=== PATIENT | female | born 1985 | race African-American/Black ===

== ENCOUNTER 2020-08-21 14:13 | Outpatient (CLI) | payer MEDICAID, OTHER ==
[2020-08-21 15:10] VITALS: BP 102/64
[2020-08-21 15:53] LABS: Bilirubin,Urine NEG (Negative); Blood,Urine MOD (Negative); Color,Urine Yellow (Yellow); Mucus,Urine FEW /HPF; Urobilinogen,Urine < 2.0 mg/dL (<2.0)
--- NOTE | 2020-08-21 18:02 | Ultrasound Report ---
Ultrasound OB biophysical profile INDICATION: well-being FINDINGS: breathing movement score 2. movements score 2. posturing time score 2. Am niotic fluid volume score 2. Total biophysical profile 8 out of 8. heart rate is 140. IMPRESSION: Normal biophysical profile. Signer Name: Britton Lyle MD Signed: 08/21/2020 5:57 PM Workstation Name: [id number]
== END 2020-08-21 18:45 | disposition home or self-care (01) ==
LOC: TRG 14:13 → APU 14:16 → TRG 18:45
DX: O46.8X3 Other antepartum hemorrhage, third trimester (principal); Z3A.39 39 weeks gestation of pregnancy
CPT/HCPCS: 59025; 76819; 81001; 87086

== ENCOUNTER 2020-08-22 22:12 | Inpatient (IN) | payer MEDICAID ==
[2020-08-22] MEDS ORDERED: LIDOCAINE (2%) 20 MG/1 ML VIAL 20 ML MDV INFILTRATI ONE (23:29)
[2020-08-22] MEDS ORDERED: BUTORPHANOL 2 MG/1 ML INJ IV PRN ×2 (23:29)
[2020-08-22] MEDS ORDERED: ePHEDrine SULFATE 50 MG/1 ML INJ IV PRN (23:29)
[2020-08-22] MEDS ORDERED: AMPICILLIN/NS 2 GM/100 ML 2 GM/100 ML BAG IV ONE (23:29)
[2020-08-22] MEDS ORDERED: fentaNYL 100 MCG/2 ML INJ IV PRN (23:29)
[2020-08-22] MEDS ORDERED: CARBOPROST TROMETHAMINE 250 MCG/1 ML INJ IM PRN (23:29)
[2020-08-22] MEDS ORDERED: ONDANSETRON 4 MG/2 ML INJ IV PRN (23:29)
[2020-08-22] MEDS ORDERED: METHYLERGONOVINE MALEATE 0.2 MG/ML VIAL IM PRN (23:29)
[2020-08-22] MEDS ORDERED: LOPERAMIDE 2 MG CAP PO PRN (23:29)
[2020-08-22] MEDS ORDERED: OXYTOCIN 10 UNIT/1 ML INJ IM PRN (23:29)
[2020-08-22] MEDS ORDERED: NALOXONE 0.4 MG/1 ML INJ IV PRN (23:29)
[2020-08-22] MEDS ORDERED: TERBUTALINE 1 MG/1 ML INJ SUB-Q PRN (23:29)
[2020-08-22] MEDS ORDERED: miSOPROStol 200 MCG TAB PR PRN (23:29)
[2020-08-22] MEDS ORDERED: MINERAL OIL 30 ML ORAL LIQD PO PRN (23:29)
[2020-08-22] MEDS ORDERED: LACTATED RINGERS 1,000 ML IV SCH (23:30)
[2020-08-22] MEDS ORDERED: OXYTOCIN DRIP 30 UNITS/500 ML BAG IV SCH (23:45)
[2020-08-23 00:10] LABS: Hematocrit 39.7 % (30.3-42.9); Mean Corpuscular HGB Conc 35 % (30-34); Mean Corpuscular Volume 93 fl (79-97); Platelet Count 211 K/mm3 (140-440); Red Blood Count 4.27 M/mm3 (3.65-5.03); Red Cell Distribution Width 13.9 % (13.2-15.2)
[2020-08-23] MEDS ORDERED: AMPICILLIN/NS 1 GM/50 ML 1 GM/50 ML BAG IV SCH (04:00)
[2020-08-23] MEDS ORDERED: LIDOCAINE (2%) 20 MG/1 ML VIAL 20 ML MDV INFILTRATI ONE (05:13)
[2020-08-23] MEDS ORDERED: diphenhydrAMINE 25 MG CAP PO PRN (06:32)
[2020-08-23] MEDS ORDERED: ONDANSETRON 4 MG/2 ML INJ IV PRN (06:32)
[2020-08-23] MEDS ORDERED: MAGNESIUM HYDROXIDE (MOM) ORAL LIQD UDC PO PRN (06:32)
[2020-08-23] MEDS ORDERED: PROMETHAZINE 25 MG RECT SUPP PR PRN (06:32)
[2020-08-23] MEDS ORDERED: LANOLIN/ZINC/DIMETHICONE (LANSINOH) 7 GM TP PRN (06:32)
[2020-08-23] MEDS ORDERED: PROMETHAZINE 25 MG TAB PO PRN (06:32)
[2020-08-23] MEDS ORDERED: WITCH HAZEL/ GLYCERIN PAD TP PRN (06:32)
--- NOTE | 2020-08-23 06:52 | History and Physical Report ---
History of Present Illness Date of examination: 08/23/20 Date of admission: 08/22/20 23:30 Chief complaint: c/o uc since last night History of present illness: 34 y/o presents at [facility] @ 39.4 wks with c/o uc since last night. She denies VB or LOF, and admits to adq FM. Pt states she initiated her pnc at [facility] early in her preg. She reports an uneventful preg w/o complications. Hx of c/s in 2014 with first preg r/t breech presentation. Pt had a with second preg. Social hx unremakable. Family hx of diabetes. Pt was found to be in labor and was admitted to L&D for delivery. Past History Past Medical History: no pertinent history Past Surgical History: section Family/Genetic History: diabetes Social history: no significant social history - Obstetrical History Expected Date of Delivery: 08/25/20 Actual Gestation: 39 Week(s) 5 Day(s) : 3 Para: 2 Hx # Term Pregnancies: 2 Number of Living Children: 2 Medications and Allergies Allergies Allergy/AdvReac Type Severity Reaction Status Date / Time No Known Allergies Allergy Verified 01/08/15 13:33 Home Medications Medication Instructions Recorded Confirmed Last Taken Type No Known Home Medications [No 08/23/20 08/23/20 Unknown History Reported Home Medications] Active Meds: Active Medications Bisacodyl (Bisacodyl 10 Mg Rect Supp) 10 mg [place] BID PRN PRN Reason: Constipation Butorphanol Tartrate (Butorphanol 2 Mg/1 Ml Inj) 2 mg IV Q2H PRN PRN Reason: Pain , Severe (7-10) Butorphanol Tartrate (Butorphanol 2 Mg/1 Ml Inj) 1 mg IV Q2H PRN PRN Reason: Pain, Moderate(4-6) LABOR PAIN Carboprost Tromethamine (Carboprost Tromethamine 250 Mcg/1 Ml Inj) 250 mcg IM ONCE PRN PRN Reason: Uterine Bleeding Diphenhydramine HCl (Diphenhydramine 25 Mg Cap) 25 mg PO Q6H PRN PRN Reason: Itching Ephedrine Sulfate (Ephedrine Sulfate 50 Mg/1 Ml Inj) 10 mg IV Q2M PRN PRN Reason: Hypotension Fentanyl (Fentanyl 100 Mcg/2 Ml Inj) 100 mcg IV Q2H PRN PRN Reason: Pain,Severe (7-10) LABOR PAIN Lactated Ringer's (Lactated Ringers) 1,000 mls @ 125 mls/hr IV DIRECT [facility] Last Admin: 08/23/20 01:17 Dose: 125 mls/hr Documented by: Oxytocin/Sodium Chloride (Pitocin/Ns 30 Unit/500ml) 30 units in 500 mls @ 40 mls/hr IV TITR JANELL; Protocol Ampicillin Sodium (Ampicillin/Ns 1 Gm/50 Ml) 1 gm in 50 mls @ 100 mls/hr IV Q4H JANELL; Protocol Last Admin: 08/23/20 04:46 Dose: 100 mls/hr Documented by: Ibuprofen (Ibuprofen 600 Mg Tab) 600 mg PO Q6H JANELL Loperamide HCl (Loperamide 2 Mg Cap) 2 mg PO ONCE PRN PRN Reason: give with Hemabate Magnesium Hydroxide (Magnesium Hydroxide (Mom) Oral Liqd Udc) 30 ml PO HS PRN PRN Reason: Constipation Methylergonovine Maleate (Methylergonovine Maleate 0.2 Mg/Ml Vial) 0.2 mg IM ONCE PRN PRN Reason: Uterine Bleeding Mineral Oil (Mineral Oil 30 Ml Oral Liqd) 30 ml PO QHS PRN PRN Reason: Constipation Multi-Ingredient Ointment (Lanolin/Zinc/Dimethicone (Lansinoh) 7 Gm) 1 applic TP PRN PRN PRN Reason: Sore Nipples Naloxone HCl (Naloxone 0.4 Mg/1 Ml Inj) 0.1 mg IV Q2MIN PRN PRN Reason: Res Rate </= 8 or 02 SAT < 92% Ondansetron HCl (Ondansetron 4 Mg/2 Ml Inj) 4 mg IV Q8H PRN PRN Reason: Nausea And Vomiting Ondansetron HCl (Ondansetron 4 Mg/2 Ml Inj) 4 mg IV Q8H PRN PRN Reason: Nausea And Vomiting Oxytocin (Oxytocin 10 Unit/1 Ml Inj) 10 unit IM ONCE PRN PRN Reason: Uterine Bleeding Promethazine HCl (Promethazine 25 Mg Rect Supp) 25 mg AZ Q6H PRN PRN Reason: Nausea And Vomiting Promethazine HCl (Promethazine 25 Mg Tab) 25 mg PO Q6H PRN PRN Reason: Nausea And Vomiting Sodium Chloride (Sodium Chloride 0.9% 10 Ml Flush Syringe) 10 ml IV PRN NR Terbutaline Sulfate (Terbutaline 1 Mg/1 Ml Inj) 0.25 mg SUB-Q ONCE PRN PRN Reason: Hyperstimulation/Hypertonicity Witch Thania/Glycerin (Witch Thania/ Glycerin Pad) 1 each TP PRN PRN PRN Reason: Hemorrhoid/cleansing/soothing Review of Systems All systems: negative Eyes: deferred Ears, nose, mouth and throat: deferred Breasts: normal Genitourinary: normal appearance Rectal Exam: deferred - Vital Signs Vital signs: Vital Signs Pulse BP 94 H 100/59 08/22/20 22:56 08/22/20 22:56 Temp Pulse Resp BP Pulse Ox 99.0 F 60 17 93/50 08/23/20 05:14 08/23/20 06:30 08/22/20 23:03 08/23/20 06:30 - Physical Exam Breasts: Positive: normal Abdomen: Positive: normal appearance, normal bowel sounds, other (gravid) Genitourinary (Female): Positive: normal perenium Vulva: both: normal Vagina: Positive: normal moisture Uterus: Positive: enlarged, normal contour, other (gravid) Anus/Rectum: Positive: normal perianal skin Extremities: Positive: normal - Obstetrical FHR: auscultation normal, category 1 Uterine Contraction Monitor Mode: External Cervical Dilatation: 9 Cervical Effacement Percentage: 100 station: 0 Uterine Contraction Pattern: Regular Uterine Tone Measurement Phase: Resting Uterine Contraction Intensity: Strong/Firm Results Result Diagrams: 08/22/20 23:51 Abnormal lab results 08/22/20 Range/Units 23:51 MCH 33 H (28-32) pg MCHC 35 H (30-34) % All other labs normal. Assessment and Plan A: IUP@ 39.5 wks Hx of previous c/s with GBS unknown p: Admit to L&D Continuos monitoring GBS protocal Obtain PNR Anticipate - Patient Problems (1) Supervision of normal IUP (intrauterine ) in multigravida Current Visit: Yes Status: Acute
--- NOTE | 2020-08-23 07:14 | Procedure Note ---
OB Delivery Note - Delivery Date of Delivery: 08/23/20 Surgeon: MERCEDES BOND Estimated blood loss: 300cc - Vaginal Delivery position: OA Intrapartum events: precipitous labor- <3hr Delivery induction: none Delivery monitor: external FHT, external uterine Route of delivery: Delivery placenta: spontaneous Delivery cord: 3 umbilical vessels Episiotomy: none Delivery laceration: 1st degree, vaginal side wall Delivery repair: vicryl Anesthesia: local Delivery comments: Called to for delivery. SVE 10/100%/0 and pt was pushing. of a viable li ve female in OA position. Spontaneous delivery of head and shoulders. was placed on mom's chest/abd for skin to skin bonding. Delayed cord clamping while nurse dried and stimulated baby. Cord was clamped x 2 and maternal GM was allowed to cut the cord. Infant was taken to infant warmer by NICU nurse for an asses. 8/9. Spontaneous delivery of intact placenta with CVX3. Cord blood was obtained. FF@ U2. Homeostasis was maintained with fundal massage and IV Pitocin. An exploration of tears revealed shabbir vag wall lacerations and a non bleeding 1st degree perineal lac which was not repaired. Vag wall lacerations were repaired with a 3-[address]-1 under local. Repair was tolerated well. QBL 322cc. FW 2951 Gms. Mom and baby was left in stable condition with nurses. - Infant A at 1 minute: 8 at 5 minutes: 9 Infant Gender: Female (FW [id number])
[2020-08-23] MEDS: IBUPROFEN 600 MG TAB PO SCH ×2 (07:32→18:50)
[2020-08-23 19:52] LABS: Hematocrit 37.2 % (30.3-42.9); Hemoglobin 12.6 gm/dl (10.1-14.3)
--- NOTE | 2020-08-24 08:17 | Progress Note ---
Subjective - Subjective Date of service: 08/24/20 Interval history: stable continue routine PP care Patient reports: appetite normal, voiding normally, pain well controlled, ambulating normally : doing well Objective - Vital Signs Latest vital signs: Vital Signs Temp Pulse Resp BP Pulse Ox 08/24/20 02:08 97.5 F L 60 18 96/54 96 08/24/20 02:02 97.5 F L 60 18 96 08/23/20 16:28 98.3 F 68 18 121/77 08/23/20 12:32 98.2 F 71 18 111/72 08/23/20 08:50 98.5 F 66 20 109/54 Intake and Output 08/23/20 08/24/20 08/24/20 23:59 07:59 15:59 Intake Total 480 120 Balance 480 120 Intake: Intake, Free Water 480 120 Other: # Voids Void 2 1 - Exam Breasts: Present: deferred Cardiovascular: Present: Regular rate Abdomen: Present: normal appearance, soft, normal bowel sounds Uterus: Present: fundal height below umbilicus Extremities: Present: normal Deep Tendon Reflex Grade: Normal but brisk +3
[2020-08-24 17:18] VITALS: BP 115/76
== END 2020-08-24 17:56 | disposition home or self-care (01) | DRG 775 ==
LOC: TRG 22:12 → APU 22:49 → TRG 23:29 → LD 23:30 → OB 08-23 08:40
PROVIDERS: ADMIT Obstetrics & Gynecology; ATTEND Obstetrics & Gynecology
PROC: 10E0XZZ Delivery of Products of Conception, External Approach (ICD-10-PCS; principal; 2020-08-22)
PROC: 0KQM0ZZ Repair Perineum Muscle, Open Approach (ICD-10-PCS; 2020-08-22)
DX: O62.3 Precipitate labor (principal); Z3A.39 39 weeks gestation of pregnancy; Z20.822 Contact with and (suspected) exposure to COVID-19; Z37.0 Single live birth; O70.1 Second degree perineal laceration during delivery; O34.211 Maternal care for low transverse scar from previous cesarean delivery
CPT/HCPCS: 36415; 59025; 76819; 81001; 85014; 85018; 85027; 86592; 86706; 86762; 86850; 86900; 86901; 87086; 87806; 99211; G0378; G0463; J0290; J7120; U0003